=== PATIENT | female | born 1955 | race Caucasian/White ===

== ENCOUNTER 2016-08-02 10:21 | Emergency (ER) | payer MEDICARE, OTHER ==
[~2016-08-02] VITALS: Wt 44.5 kg
[2016-08-02] MEDS ORDERED: DIPHTH/TET/ACEL PERTUSS (ADULT) 0.5 ML VIAL IM* ONE (11:30)
[2016-08-02] MEDS ORDERED: LIDOCAINE 1% (MDV) 20 ML INJ SC ONE (11:30)
[2016-08-02] MEDS ORDERED: IBUPROFEN 200 MG TAB PO ONE (11:30)
[2016-08-02] MEDS ORDERED: DOXY100T20 PO (12:23)
[2016-08-02] MEDS ORDERED: IBUP-1542 PO (12:23)
--- NOTE | 2016-08-02 12:26 | ERD ---
ER Documentation Chief Complaint Date/Time DATE: 08/02/16 TIME: 12:23 Chief Complaint cactus splinter stuck in left pinky finger. no bleeding noted. onset 15 day HPI This 61-year-old female complains of persistent left pinky finger foreign body sensation after possible cactus thorn. The pain is on the dorsum of her left fifth digit near the nail. She possibly has some mild redness. She denies any fevers, restricted range of motion or weakness. Tetanus is not up-to-date. ROS All systems reviewed and are negative except as per history of present illness. Medications Home Meds Active Scripts Doxycycline Hyclate* (Doxycycline Hyclate*) 100 Mg Tablet.dr, 100 MG PO BID for 7 Days, TAB Prov:YOGESH BELCHER MD 08/02/16 Ibuprofen* (Motrin*) 600 Mg Tab, 600 MG PO Q6, #15 TAB Prov:YOGESH BELCHER MD 08/02/16 Reported Medications [None] No Conflict Check 08/01/12 Allergies Allergies: Uncoded Allergies: NONE (Allergy, Unknown, 09/25/15) PMhx/Soc History of Surgery: No Anesthesia Reaction: No Hx Respiratory Disorders: No Hx Cardiac Disorders: Yes ( AT TIMES) Hx Psychiatric Problems: No Hx Alcohol Use: No Hx Substance Use: No Hx Tobacco Use: No Physical Exam Vitals Vital Signs Date Time Temp Pulse Resp B/P Pulse Ox O2 Delivery O2 Flow Rate FiO2 08/02/16 10:22 97.9 99 21 150/61 99 Physical Exam Const: [] Alert, [id number] per Head: Atraumatic Eyes: Normal Conjunctiva ENT: Normal External Ears, Nose and Mouth. Neck: Full range of motion..~ No meningismus. Resp: Clear to auscultation bilaterally Cardio: Regular rate and rhythm, no murmurs Abd: Soft, non tender, non distended. Normal bowel sounds Skin: No petechiae or rashes. On the dorsum of the left fifth digit in the paronychial area there is a slight amount of redness and skin changes from where the patient was attempting to remove the splinter at home. There is no restricted range of motion weakness or proximal tendon tenderness. Back: No midline or flank tenderness Ext: No cyanosis, or edema Neur: Awake and alert Psych: Normal Mood and Affect Results 24 hrs Current Medications Medications (Trade) Dose Ordered Sig/Yanni Route PRN Reason Start Time Stop Time Status Last Admin Dose Admin Diphtheria/ Tetanus/Acell Pertussis (Adacel) 0.5 ml ONCE ONCE IM* 08/02/16 11:30 08/02/16 11:31 DC 08/02/16 12:15 Ibuprofen (Motrin) 400 mg ONCE ONCE PO 08/02/16 11:30 08/02/16 11:31 DC 08/02/16 12:09 Lidocaine (Xylocaine 1% (Mdv) 20 ml) 20 ml ONCE ONCE SC 08/02/16 11:30 08/02/16 11:31 DC Procedures/MDM Patient was given a tetanus booster. X-ray left pinky finger 2V Interpreted by me: Bones: [No fracture] Joints: [No dislocation] Foreign body: [None]. Impression-normal left pinky x-ray Procedure note-given the possible splinter foreign body. Incision and drainage or unroofing was performed. Left pinky finger was prepped with Betadine. 1 cc of lidocaine was used to perform a digital block. Anesthesia was obtained. An 18-gauge needle was used to unroofed the lesion express some blood without appreciable foreign body. I suspect there may be dissolved cactus thorn but there is no gratifying foreign body. Recommending warm soaks, she will be treated with doxycycline and ibuprofen and further observation at home. Patient was advised to have a wound check in 2-3 days and follow-up with primary doctor the next week. There is no signs or symptoms of radiopaque foreign body, fracture, dislocation, osteomyelitis, tenosynovitis, significant cellulitis. Departure Diagnosis: Primary Impression: Splinter Condition: Stable Patient Instructions: Splinter Removal Additional Instructions: Recommend warm soaks at home. X-ray appears normal. Recheck for worsening redness, new or worsening symptoms with primary care doctor. YOGESH BELCHER MD Aug 02, 2016 12:26
--- NOTE | 2016-08-02 12:37 | RADRPT ---
PROCEDURE: XR Left pinky finger CLINICAL INDICATION: Pain evaluate for foreign body TECHNIQUE: AP, oblique, and lateral radiographs were submitted. COMPARISON: None FINDINGS: Osseous structures: appear well mineralized and intact with no fracture or destructive process iden tified. Joint spaces: are well maintained, with no significant spurring, erosion or joint effusion evident. Soft tissues: There is mild soft tissue prominence Dorsomedial to the distal phalanx of the left pin ky finger. IMPRESSION: 1. Mild soft tissue prominence dorsomedial to the distal phalanx of the left pinky finger. 2. Otherwise, unremarkable left pinky finger study. Physician Cathleen Date Time Electronically viewed and signed by Physician Cathleen on 08/02/2016 12:37 /
== END 2016-08-02 12:53 | disposition home or self-care (01) ==
LOC: FTE 10:21
DX: S60.457A Superficial foreign body of left little finger, initial encounter (principal); W45.8XXA Other foreign body or object entering through skin, initial encounter; Y92.9 Unspecified place or not applicable; Z23 Encounter for immunization
CPT/HCPCS: 73140; 90471; 90715

== ENCOUNTER 2016-09-16 20:13 | Emergency (ER) | payer MEDICARE, OTHER ==
[~2016-09-16] VITALS: Ht 154.9 cm; Wt 44.5 kg
[~2016-09-16 20:13] MED LIST: DOXY100T20 PO; IBUP-1542 PO
[2016-09-16 20:29] VITALS: Ht 154.9 cm; Wt 44.5 kg
--- NOTE | 2016-09-16 22:05 | RADRPT ---
PROCEDURE: XR Chest. CLINICAL INDICATION: Cough. TECHNIQUE: Single frontal view. COMPARISON: 08/01/2012. FINDINGS: The lungs are clear. The heart size is normal. There is no pleural effusion. There is no pneumothorax. IMPRESSION: 1. Normal chest radiograph. RPTAT: QQ .Kirk Weeks MD, MD Date Time Electronically viewed and signed by .Kirk Weeks MD, on 09/16/2016 22:05 .R/
[2016-09-16] MEDS ORDERED: ALBU18HF INHALATION (23:43)
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
== END 2016-09-16 23:55 | disposition home or self-care (01) ==
LOC: FTE 20:13
DX: T59.811A Toxic effect of smoke, accidental (unintentional), initial encounter (principal)
CPT/HCPCS: 36415; 71010; 82375